=== PATIENT | female | born 1960 | race Caucasian/White ===

== ENCOUNTER 2019-06-25 17:50 | Emergency (ER) | payer MEDICAID, OTHER ==
[~2019-06-25] VITALS: Ht 149.9 cm; Wt 48.0 kg
[~2019-06-25 17:50] MED LIST: ALPR-624 PO; BACDS PO; BUTA1CAP; CALC-336; CHOL50004 PO; CITA20TA28 PO; CITA40TA17; DEXT20CA4; ESTR-8 PO; FEXO1TAB8 PO; FIOCOC PO; NORCO10T PO
[2019-06-25 18:53] VITALS: BP 148/79
== END 2019-06-25 19:09 | disposition home or self-care (01) ==
LOC: ER 17:50
DX: R60.0 Localized edema (principal); G35 Multiple sclerosis; G89.29 Other chronic pain; F15.90 Other stimulant use, unspecified, uncomplicated; Z90.49 Acquired absence of other specified parts of digestive tract; Z90.710 Acquired absence of both cervix and uterus; Z98.890 Other specified postprocedural states; Z79.899 Other long term (current) drug therapy
CPT/HCPCS: 99281

== ENCOUNTER 2019-10-08 15:23 | Emergency (ER) | payer MEDICAID, OTHER ==
[~2019-10-08] VITALS: Ht 271.8 cm; Wt 46.4 kg
[~2019-10-08 15:23] MED LIST changes: -CALC-336; +CALC-336 PO; -CITA40TA17; +CITA40TA17 PO; -DEXT20CA4; +DEXT20CA4 PO
[2019-10-08 16:04] LABS: CLARITY,URINE SLIGHTLY CLOUDY (Clear); COLOR,URINE YELLOW (Yellow); GLUCOSE, URINE NEGATIVE (Neg); KETONES,URINE NEGATIVE (Neg); LEUKOCYTE ESTERASE ,URINE NEGATIVE (Neg); NITRITES, URINE NEGATIVE (Neg); OCCULT BLOOD,URINE NEGATIVE (Neg); PH,URINE 5.5 (4.8-8.0); PROTEIN,URINE NEGATIVE (Neg); UROBILINOGEN,URINE 0.2 E.U/dL (0.2-1.0)
[2019-10-08 16:08] LABS: UA COLLECTION TYPE CLN CATCH MIDSTREAM
[2019-10-08 16:09] LABS: BACTERIA,URINE FEW /HPF (Neg); MUCUS STRANDS FEW /LPF (Neg); RBC,URINE 0-2 /HPF (0-2); SQUAMOUS EPITHELIAL CELL,UR MODERATE /LPF (FEW); WBC,URINE 0-4 /HPF (0-4)
[2019-10-08 16:16] LABS: URINE AMPHETAMINE SCREEN NEGATIVE (Neg); URINE BARBITUATE SCREEN POSITIVE (Neg); URINE BENZODIAZEPINES SCREEN NEGATIVE (Neg); URINE CANNABINOID SCREEN NEGATIVE (Neg); URINE COCAINE SCREEN NEGATIVE (Neg); URINE METHADONE SCREEN NEGATIVE (Neg); URINE OPIATE SCREEN POSITIVE (Neg); URINE PHENCYCLIDINE SCREEN NEGATIVE (Neg)
[2019-10-08 16:34] LABS: BASOPHILS % (AUTO) 0.3 % (0-1); EOSINOPHILS # (AUTO) 0.1 X10'3 (0-0.9); HEMATOCRIT 31.4 % (35.0-45.0); HEMOGLOBIN 10.3 g/dl (12.0-16.0); LYMPHOCYTES # (AUTO) 2.6 X10'3 (1.1-4.8); LYMPHOCYTES % (AUTO) 42.4 % (21-51); MEAN CORPUSCULAR HGB CONC 32.9 g/dL (33.0-36.5); MEAN CORPUSCULAR VOLUME 85.1 FL (78-98); MONOCYTES # (AUTO) 0.6 X10'3 (0-0.9); NEUTROPHILS # (AUTO) 2.8 X10'3 (1.8-7.7); NEUTROPHILS % (AUTO) 46.3 % (42-75); PLATELET COUNT 182 X10'3 (140-440); RED BLOOD COUNT 3.69 X10'6 (4.20-5.60); RED CELL DISTRIBUTION WIDTH 18.1 % (11.5-14.5); WHITE BLOOD COUNT 6.1 X10'3 (4.5-11.0)
--- NOTE | 2019-10-08 16:36 | NUR ---
Resting in bed
[2019-10-08 16:49] LABS: ALANINE AMINOTRANSFERASE 26 U/L (12-78); ALBUMIN 3.2 G/DL (3.4-5.0); ALKALINE PHOSPHATASE 73 IU/L (46-116); ANION GAP 8 (8-16); ASPARTATE AMINO TRANSFERASE 25 U/L (10-37); BILIRUBIN,TOTAL 0.2 MG/DL (0.1-1.0); BLOOD UREA NITROGEN 8 MG/DL (7-18); BUN/CREATININE RATIO 11.6 (6.6-38.0); CALCIUM 9.3 MG/DL (8.5-10.1); CHLORIDE 105 MMOL/L (99-107); CREATININE 0.69 MG/DL (0.40-0.90); GLUCOSE 83 MG/DL (70-104); POTASSIUM 3.8 MMOL/L (3.5-5.1); SODIUM 143 MMOL/L (135-145); TOTAL CARBON DIOXIDE 30.2 MMOL/L (24-32); TOTAL PROTEIN 6.3 G/DL (6.4-8.2); eGFR 88 ML/MIN
[2019-10-08] MEDS ORDERED: predniSONE 20 mg tablet PO ONE (17:05)
--- NOTE | 2019-10-08 17:06 | NUR ---
resting bed resp stable
[2019-10-08] MEDS ORDERED: ALPRAZolam 0.5mg tablet PO PRN (17:35)
--- NOTE | 2019-10-08 18:05 | NUR ---
resting in bed resp stable
[2019-10-08] MEDS: ACETAMINOPHEN PO SCH (21:00)
[2019-10-08] MEDS: CODEINE PO SCH (21:00)
[2019-10-08] MEDS: BUTALBITAL PO SCH (21:00)
[2019-10-08] MEDS: CAFFEINE PO SCH (21:00)
--- NOTE | 2019-10-08 23:48 | NUR ---
PT RESTING ON BACK IN BED. RR OF 15. NO S/S OF DISTRESS OR PAIN. WILL CONTINUE TO MONITOR.
[2019-10-09 06:09] VITALS: BP 111/64
--- NOTE | 2019-10-09 07:02 | NUR ---
Asleep respirations stable
[2019-10-09] MEDS: ACETAMINOPHEN PO SCH (07:54)
[2019-10-09] MEDS: CAFFEINE PO SCH (07:54)
[2019-10-09] MEDS: BUTALBITAL PO SCH (07:54)
[2019-10-09] MEDS: CODEINE PO SCH (07:54)
[2019-10-09] MEDS ORDERED: loratadine/pseudoephedrine TAB.SR.12Hour PO SCH (08:00)
[2019-10-09] MEDS ORDERED: dextroamphetamine/amphetamine ER 20 MG CAP.SR.24H PO SCH (08:00)
[2019-10-09] MEDS ORDERED: calcium carbonate 500mg tablet PO SCH (08:00)
[2019-10-09] MEDS ORDERED: vitamin D (cholecalciferol) 1,000 unit tablet PO SCH (08:00)
[2019-10-09] MEDS ORDERED: citalopram 20mg tablet PO SCH (08:00)
--- NOTE | 2019-10-09 08:00 | NUR ---
Asleep respirations stable
--- NOTE | 2019-10-09 09:22 | NUR ---
Asleep respirations stable
--- NOTE | 2019-10-09 11:45 | NUR ---
JUANITA FROM [facility] OFFICE. PATIENT IS ACCEPTED TO [facility]. PATIENT IS RESTING QUIETLY IN BED WITHOUT COMPLAINTS.
== END 2019-10-09 12:51 | disposition home or self-care (01) ==
LOC: ER 15:24 → EEVIPCON 15:24 → ER 10-09 12:51
DX: F41.9 Anxiety disorder, unspecified (principal); G35 Multiple sclerosis; G89.29 Other chronic pain; F15.90 Other stimulant use, unspecified, uncomplicated; F32.9 Major depressive disorder, single episode, unspecified; Z98.890 Other specified postprocedural states; Z90.49 Acquired absence of other specified parts of digestive tract; Z90.710 Acquired absence of both cervix and uterus; Z79.899 Other long term (current) drug therapy
CPT/HCPCS: 36415; 80053; 80305; 81001; 85025; 99285; J7512

== ENCOUNTER 2020-01-14 20:10 | Emergency (ER) | payer MEDICAID ==
[~2020-01-14] VITALS: Ht 149.9 cm; Wt 47.7 kg
[~2020-01-14 20:10] MED LIST changes: +ASPI-1071 PO; -CITA40TA17 PO; +DULO30CA52 PO; -FEXO1TAB8 PO; +NICO-687 TD; +TRAZ-251 PO
[2020-01-14 20:33] VITALS: BP 99/53
[2020-01-15] MEDS ORDERED: PROM12.512 PO (00:08)
[2020-01-15] MEDS ORDERED: dexamethasone 4mg tablet PO ONE (00:10)
== END 2020-01-15 00:26 | disposition home or self-care (01) ==
LOC: ER 20:13
DX: U07.1 COVID-19 (principal); R53.83 Other fatigue; J02.9 Acute pharyngitis, unspecified; R11.2 Nausea with vomiting, unspecified; R50.9 Fever, unspecified; R05 Cough; G89.29 Other chronic pain; F41.9 Anxiety disorder, unspecified; F32.9 Major depressive disorder, single episode, unspecified; F17.200 Nicotine dependence, unspecified, uncomplicated; F15.90 Other stimulant use, unspecified, uncomplicated; Z86.2 Personal history of diseases of the blood and blood-forming organs and certain disorders involving the immune mechanism; Z90.89 Acquired absence of other organs; Z90.710 Acquired absence of both cervix and uterus; Z98.890 Other specified postprocedural states; Z60.2 Problems related to living alone; Z79.82 Long term (current) use of aspirin; Z79.899 Other long term (current) drug therapy
CPT/HCPCS: 99283; 99285